=== PATIENT | female | born 1970 | race Caucasian/White ===

== ENCOUNTER → 2018-12-17 | Day surgery (SDC) | payer BC ==
--- NOTE | 2018-12-17 16:25 | OP ---
DATE OF OPERATION: 12/17/2018 PREOPERATIVE DIAGNOSIS: Right breast intraductal mass at the 7 o'clock position, retroareolar. POSTOPERATIVE DIAGNOSIS: Right breast intraductal mass at the 7 o'clock position, retroareolar. PROCEDURE: Right ultrasound-guided core biopsy and clip placement. ANESTHESIA: Local. ATTENDING SURGEON: Bao Fall MD ESTIMATED BLOOD LOSS: Minimal. COMPLICATIONS: None. PROCEDURE: Patient was made aware of the risks and benefits of the procedure and consented. She was placed in the supine position. Under sterile conditions with 1% lidocaine without epinephrine, a small frantz was made in the skin. Using a 13-gauge suction-biopsy device, via lateral approach, under ultrasound guidance, 4 cores were obtained, completely eliminating the lesion. Likewise, under ultrasound guidance, a bowtie clip was placed into the biopsy region. The specimen was submitted to Pathology. Steri-Strips and a sterile bandage were applied. We will contact her with the results. BAO FALL M.D. [id number]
--- NOTE | 2018-12-20 16:12 | PATH ---
Surgical Pathology Report Patient Name: EVANGELINA FERNANDEZ [facility]. Rec. #: [id number] /Age/Gender: 1970 (Age: 48) / F Account: [id number] Location: [facility] Taken: 12/17/2018 Received: 12/17/2018 Reported: 12/20/2018 Physicians: Evy Balderas M.D. Specimen(s) Received RIGHT BREAST 7 CM FN RA CORE BIOPSY Clinical History Nonpalpable lesion Ultrasound findings: Cystic lesion Final Diagnosis BREAST, RIGHT, 7 CM FN RA, CORE BIOPSY: BENIGN BREAST TISSUE SHOWING FIBROADENOMA WITH ASSOCIATED CYSTIC APOCRINE METAPLASIA. Electronically Signed Sabra Carpenter M.D. Gross Description Received in formalin labeled "right breast biopsy 7:00 RA" are 4 mckenzie-yellow, cylindrical portions of fibroadipose tissue ranging from 0.6-1.4 cm in length and averaging 0.2 cm in diameter. The specimens are submitted in toto in one cassette. Time to formalin fixation: < 1 minute Total formalin fixation time: Approximately 51 hours. /12/17/2018 saudi/12/17/2018
== END | disposition home or self-care (01) ==
LOC: FRADUS-SUR 14:07
PROVIDERS: ATTEND Surgery Surgical Oncology
PROC: 0HBT3ZX Excision of Right Breast, Percutaneous Approach, Diagnostic (ICD-10-PCS; principal; 2018-12-17)
DX: N63.13 Unspecified lump in the right breast, lower outer quadrant (principal); D24.1 Benign neoplasm of right breast; N64.89 Other specified disorders of breast
CPT/HCPCS: 19083; 87899; 88305-TC; A4648